=== PATIENT | male | born 1985 | race Two or more races ===

== ENCOUNTER 2018-06-15 22:52 | Emergency (ER) | payer MEDICAID ==
[~2018-06-15] VITALS: Ht 160 cm; Wt 72.6 kg
[~2018-06-15 22:52] MED LIST: HYDR-3204 PO
--- NOTE | 2018-06-15 23:00 | NUR ---
HEAD INJURY/ABRASIONS S/P "RAN THROUGH [employer] AND FELL ON THE GROUND CALLING [employer] THINKING PEOPLE WERE CHASING AFTER HIM"; DENIES KO/ANY SX'S. PT DENIES SI,HI. NO S/S OF ACUTE DISTRESS NOTED. RESP EVEN AND UNLABORED. PT PLACED ON MONITOR AND POX. [employer] BEDSIDE WITH PT. PT SAFETY AND COMFORT MEASURES IN PLACE. AWAITING MD FOR EVAL.
--- NOTE | 2018-06-15 23:05 | NUR ---
PT DENIES HEARING VOICES. PT DENIES SI, HI. PT SAFETY AND COMFORT MEASURES IN PLACE.
[2018-06-15] MEDS ORDERED: LORAZEPAM INJ 2 MG/ML VIAL ONE (23:20)
[2018-06-15 23:30] LABS: BASOPHILS % (AUTO) 0.6 % (0.0-2.0); EOSINOPHILS % (AUTO) 0.4 % (0.0-6.0); HEMATOCRIT 41 % (39-51); HEMOGLOBIN 13.8 g/dL (13.5-17.5); LYMPHOCYTES # (AUTO) 1.9 /CMM (0.8-4.8); LYMPHOCYTES % (AUTO) 27.4 % (20.0-44.0); MEAN CORPUSCULAR HEMOGLOBIN 32 PG (26.0-33.0); MEAN CORPUSCULAR HGB CONC 34 g/dl (31.0-36.0); MEAN CORPUSCULAR VOLUME 93 fL (80-96); MONOCYTES # (AUTO) 0.7 /CMM (0.1-1.30); NEUTROPHILS # (AUTO) 4.3 /CMM (1.8-8.9); NEUTROPHILS % (AUTO) 61.6 % (43.0-81.0); PLATELET COUNT (AUTO) 356 /CMM (150-450); RED BLOOD CELL COUNT(AUTO) 4.35 MIL/uL (4.5-6.0); WHITE BLOOD COUNT (AUTO) 6.9 K/uL (4.3-11.0)
[2018-06-15] MEDS ORDERED: LORAZEPAM INJ 2 MG/ML VIAL IVP ONE (23:30)
[2018-06-15] MEDS ORDERED: LIDOCAINE 1% INJ 50 ML MDV IJ ONE (23:30)
[2018-06-15] MEDS ORDERED: TDAP [DIPH/PERTUSSIS/TET] 0.5 ML VIAL IM ONE (23:30)
[2018-06-15 23:40] LABS: CALCIUM, SERUM 9.7 mg/dL (8.5-10.1); CARBON DIOXIDE 23 mmol/L (21-32); CHLORIDE 102 mmol/L (98-107); CREATININE 1.3 mg/dL (0.6-1.3); GLUCOSE 122 mg/dL (74-106); POTASSIUM 3.2 mmol/L (3.5-5.1); SODIUM SERUM 137 mmol/L (136-145); UREA NITROGEN, BLOOD 10 mg/dL (7-18)
[2018-06-15 23:46] LABS: ALANINE AMINOTRANSFERASE 49 U/L (12-78); ALBUMIN 4.2 g/dL (3.4-5.0); ALCOHOL, BLOOD < 3 mg/dL (0-0); ALKALINE PHOSPHATASE 97 U/L (46-116); ASPARTATE AMINOTRANSFERASE 37 U/L (15-37); BILIRUBIN,DIRECT 0.1 mg/dL (0.0-0.2); BILIRUBIN,TOTAL 0.6 mg/dL (0.2-1.0); TOTAL PROTEIN, SERUM 7.9 g/dL (6.4-8.2)
[2018-06-15 23:47] LABS: ACETAMINOPHEN 0 ug/ml (10-30); SALICYLATE 0.5 mg/dL (2.8-20.0)
--- NOTE | 2018-06-16 00:05 | NUR ---
TILTING SAW OPERATOR DEGRASSE BEDSIDE FOR WOUND CARE
[2018-06-16] MEDS ORDERED: OLANZAPINE 5 MG TABLET ONE (01:24)
[2018-06-16] MEDS ORDERED: OLANZAPINE 5 MG TABLET PO ONE (01:30)
--- NOTE | 2018-06-16 01:31 | NUR ---
PT REFUSED MEDS. MADE AWARE
--- NOTE | 2018-06-16 01:32 | NUR ---
PT RESTING IN BED WITH NO S/S OF DISTRESS NOTED. WILL CONTINUE TO MONITOR PT
[2018-06-16] MEDS ORDERED: OLANZAPINE 10 MG VIAL IM ONE ×2 (04:05→04:30)
--- NOTE | 2018-06-16 04:10 | NUR ---
PT NOTED TO BE ACTING BIZZARE AND SPEAKING TO HIMSELF STATING "BLADE, I AM TIRED OF YOU AND I NEED YOU TO HIT ME IN THE FACE". MD AWARE OF PT'S BEHAVIOR. PT MOVED TO ER BED 7
--- NOTE | 2018-06-16 04:12 | NUR ---
PT MEDICATED PER MD'S ORDERS
--- NOTE | 2018-06-16 05:38 | NUR ---
Patient is resting comfortably in bed with eyes closed. Easily aroused. VSS
--- NOTE | 2018-06-16 06:16 | NUR ---
Patient is resting comfortably in bed with eyes closed. Easily aroused. No S/S of distress noted.
[2018-06-16] MEDS ORDERED: LIDOCAINE 2% JEL UROJET 10 ML MM ONE ×2 (06:21→06:30)
--- NOTE | 2018-06-16 06:45 | NUR ---
URINE SAMPLE COLLECTED AND CALLED LAB FOR FISH RECEIVER
[2018-06-16 07:09] LABS: APPEARANCE,URINE CLEAR (CLEAR); BILIRUBIN,URINE NEGATIVE (NEGATIVE); BLOOD, URINE NEGATIVE Ery/uL (NEGATIVE); COLOR,URINE YELLOW (YELLOW); KETONES,URINE TRACE (NEGATIVE); LEUKOCYTE ESTERASE ,URINE NEGATIVE (NEGATIVE); NITRITE, URINE NEGATIVE (NEGATIVE); PROTEIN,URINE NEGATIVE (NEGATIVE); UGLUCOSE NEGATIVE (NEGATIVE); UROBILINOGEN,URINE 0.2 EU/dL (0.2)
[2018-06-16 07:18] LABS: RBC,URINE NONE SEEN /HPF (0-2)
[2018-06-16 07:19] LABS: BACTERIA,URINE None seen /HPF (None Seen); SQUAMOUS EPITHELIAL CELL,UR Few /HPF (None Seen); WBC,URINE NONE SEEN /HPF (0-3)
--- NOTE | 2018-06-16 08:10 | NUR ---
APPEARS TO BE ASLEEP, NSR ON THE MONITOR.
--- NOTE | 2018-06-16 10:12 | NUR ---
AMBULATED TO RESTROOM WITH MINIMAL ASSIST,[facility] CLINICIAN CALLED FOR EVAL
--- NOTE | 2018-06-16 10:23 | NUR ---
CALLED ALANNA REYES AND WAS TOLD SHE WOULD BE HERE WITHIN THE HOUR.
[2018-06-16 13:35] VITALS: BP 116/69
--- NOTE | 2018-06-16 14:00 | NUR ---
AWAKE/ALERT X 4, CALM AND COOPERATIVE, VERBALIZED UNDERSTANDING OF ACI, F/U RESOURCES PROVIDED. D/C TO WR TO WAIT FOR HIS RIDE.
== END 2018-06-16 14:15 | disposition home or self-care (01) ==
LOC: ER 22:59
DX: S51.812A Laceration without foreign body of left forearm, initial encounter (principal); S81.812A Laceration without foreign body, left lower leg, initial encounter; S00.83XA Contusion of other part of head, initial encounter; F15.10 Other stimulant abuse, uncomplicated; W13.4XXA Fall from, out of or through window, initial encounter; Y93.39 Activity, other involving climbing, rappelling and jumping off; Y92.098 Other place in other non-institutional residence as the place of occurrence of the external cause; Y99.8 Other external cause status
CPT/HCPCS: 12002; 36415; 51701; 70450; 72125; 80048; 80076; 80305; 80329; 81001; 85025; 96372; 99285; A4606; A6402; G0480 ×2; J3490 ×2; Z7610; 81000-TC; J2060

== ENCOUNTER 2018-08-25 21:45 | Emergency (ER) | payer MEDICAID, OTHER ==
[~2018-08-25] VITALS: Ht 172.7 cm; Wt 81.6 kg
--- NOTE | 2018-08-25 21:50 | NUR ---
PT TO ER BB RA FOR BIZARRE BEHAVIOR S/P METH USE. HEMATOMA TO FOREHEAD NOTED. PT OBEYS COMMANDS HOWEVER INTERMITTENLY AGITATED, YELLING. PT TO ER BED, CHANGED INTO GOWN AND CONNECTED TO MONITOR. PT A/OX1. WILL CONT TO MONITOR PT.
[2018-08-25] MEDS ORDERED: LORAZEPAM INJ 2 MG/ML VIAL ONE (22:52)
[2018-08-25 22:57] LABS: APPEARANCE,URINE CLEAR (CLEAR); BILIRUBIN,URINE 1+ (NEGATIVE); BLOOD, URINE 1+ Ery/uL (NEGATIVE); COLOR,URINE YELLOW (YELLOW); KETONES,URINE 3+ (NEGATIVE); LEUKOCYTE ESTERASE ,URINE NEGATIVE (NEGATIVE); NITRITE, URINE NEGATIVE (NEGATIVE); PH,URINE 5.5 (5.0-8.0); PROTEIN,URINE TRACE mg/dl (NEGATIVE); UGLUCOSE NEGATIVE (NEGATIVE); UROBILINOGEN,URINE 0.2 EU/dL (0.2)
[2018-08-25 23:00] LABS: BASOPHILS % (AUTO) 0.4 % (0.0-2.0); EOSINOPHILS % (AUTO) 0.1 % (0.0-6.0); HEMATOCRIT 40 % (39-51); HEMOGLOBIN 13.5 g/dL (13.5-17.5); LYMPHOCYTES # (AUTO) 1.1 /CMM (0.8-4.8); MEAN CORPUSCULAR HGB CONC 34 g/dl (31.0-36.0); MEAN CORPUSCULAR VOLUME 94 fL (80-96); MONOCYTES # (AUTO) 0.9 /CMM (0.1-1.30); MONOCYTES % (AUTO) 9.9 % (2.0-12.0); NEUTROPHILS # (AUTO) 7.1 /CMM (1.8-8.9); NEUTROPHILS % (AUTO) 77.6 % (43.0-81.0); PLATELET COUNT (AUTO) 297 /CMM (150-450); RED BLOOD CELL COUNT(AUTO) 4.27 MIL/uL (4.5-6.0); WHITE BLOOD COUNT (AUTO) 9.2 K/uL (4.3-11.0)
[2018-08-25] MEDS ORDERED: LORAZEPAM INJ 2 MG/ML VIAL IM ONE (23:00)
[2018-08-25 23:06] LABS: RBC,URINE 0-2 /HPF (0-2)
[2018-08-25 23:07] LABS: BACTERIA,URINE Few /HPF (None Seen); SQUAMOUS EPITHELIAL CELL,UR Rare /HPF (None Seen)
[2018-08-25 23:17] LABS: CALCIUM, SERUM 9.8 mg/dL (8.5-10.1); CARBON DIOXIDE 25 mmol/L (21-32); CHLORIDE 98 mmol/L (98-107); CREATININE 1.2 mg/dL (0.6-1.3); GLUCOSE 101 mg/dL (74-106); SODIUM SERUM 137 mmol/L (136-145); UREA NITROGEN, BLOOD 8 mg/dL (7-18)
[2018-08-25 23:22] LABS: ACETAMINOPHEN 0 ug/ml (10-30); ALANINE AMINOTRANSFERASE 74 U/L (12-78); ALBUMIN 4.4 g/dL (3.4-5.0); ALKALINE PHOSPHATASE 93 U/L (46-116); ASPARTATE AMINOTRANSFERASE 76 U/L (15-37); BILIRUBIN,DIRECT 0.2 mg/dL (0.0-0.2); BILIRUBIN,TOTAL 0.9 mg/dL (0.2-1.0); SALICYLATE 0.4 mg/dL (2.8-20.0); TOTAL PROTEIN, SERUM 8.6 g/dL (6.4-8.2)
[2018-08-25 23:23] LABS: ALCOHOL, BLOOD < 3 mg/dL (0-0)
[2018-08-25] MEDS ORDERED: HALOPERIDOL LACTATE INJ 5 MG/ML VIAL ONE (23:40)
[2018-08-26] MEDS ORDERED: HALOPERIDOL LACTATE INJ 5 MG/ML VIAL IM ONE
--- NOTE | 2018-08-26 01:30 | NUR ---
BROTHER- DEBRA GODOY [phone]
--- NOTE | 2018-08-26 09:03 | NUR ---
PT. VERBALIZED UNDERSTANDING OF AFTERCARE INSTRUCTIONS.Patient discharged to home with family in stable condition. Written and verbal after care instructions given. Patient verbalizes understanding of instruction.
[2018-08-26 09:04] VITALS: BP 146/88
== END 2018-08-26 09:04 | disposition home or self-care (01) ==
LOC: ER 21:46
DX: F15.10 Other stimulant abuse, uncomplicated (principal); F10.129 Alcohol abuse with intoxication, unspecified
CPT/HCPCS: 36415; 70450; 80048; 80076; 80305; 80329; 81001; 85025; 96372 ×2; 99285; G0480 ×2; J1630; J2060; 81000-TC; A4606; Z7610

== ENCOUNTER 2022-06-19 12:15 | Emergency (ER) | payer MEDICAID, OTHER ==
[~2022-06-19] VITALS: Ht 165.1 cm; Wt 86.2 kg
[~2022-06-19 12:15] MED LIST changes: -HYDR-3204 PO; +HYDR-4275 PO
[2022-06-19] MEDS ORDERED: IBUPROFEN 600 MG TABLET PO ONE (13:00)
[2022-06-19] MEDS ORDERED: IBUPROFEN 600 MG TABLET ONE (13:06)
[2022-06-19] MEDS ORDERED: LIDOCAINE 1% INJ 50 ML MDV IJ ONE ×2 (13:59→14:00)
--- NOTE | 2022-06-19 14:05 | NUR ---
TRANSFER FROM [address] TO ROOM 11 THANH ON LT PINK ( LITELE) FINGER S/P FELL DOWN 4 DAYS AGO
--- NOTE | 2022-06-19 14:15 | NUR ---
DR. AGUILLON AT BED SIDE FOR REPLACE DISLOCATION ON LT PINK FINGER AT BED SIDE TOLORATED
[2022-06-19 14:23] VITALS: BP 142/93
--- NOTE | 2022-06-19 14:35 | NUR ---
X -RAY DONE ON LT FINGER AND RECKECK BY DR. AGUILLON
[2022-06-19] MEDS ORDERED: IBUP-1953 PO (14:40)
--- NOTE | 2022-06-19 14:40 | NUR ---
PLACE LT PICK FINGER ON FINGER SPLENT DONE
--- NOTE | 2022-06-19 15:00 | NUR ---
DR. CORTEZ SPOOK WITH PT ABOUT PLAN OF CARE AND FALLOW UP
--- NOTE | 2022-06-19 15:15 | NUR ---
D/C INSTACTION GIVEN TO PT FULLOW UP CARE FALLOW AND VERBLIZED UNDERSTOOD D/C HOME WITH RX
== END 2022-06-19 15:45 | disposition home or self-care (01) ==
LOC: ER 13:27
DX: S63.287A Dislocation of proximal interphalangeal joint of left little finger, initial encounter (principal); Z79.899 Other long term (current) drug therapy; V00.131A Fall from skateboard, initial encounter; Y93.51 Activity, roller skating (inline) and skateboarding; Y92.89 Other specified places as the place of occurrence of the external cause; Y99.8 Other external cause status
CPT/HCPCS: 99284; 26770; 73140 ×2; J3490